=== PATIENT | male | born 1950 ===

== ENCOUNTER 2024-08-18 13:08 | Emergency (ER) | payer OTHER ==
[~2024-08-18] VITALS: Ht 167.6 cm; Wt 74.8 kg
[2024-08-18 13:32] VITALS: BP 119/75; O2SAT 96
[2024-08-18] MEDS ORDERED: PANTOPRAZOLE SO40 MG PO (13:38)
[2024-08-18] MEDS ORDERED: PREDNISOLONE ACE5 ML (13:38)
[2024-08-18] MEDS ORDERED: ATORVASTATIN CA40 MG PO (13:38)
[2024-08-18] MEDS ORDERED: JANUVIA100 MG PO (13:38)
[2024-08-18] MEDS ORDERED: LOSARTAN POTASS25 MG PO (13:38)
[2024-08-18] MEDS ORDERED: XARELTO20 MG (13:39)
[2024-08-18] MEDS ORDERED: TRELEGY ELLIPT1 EAC1 IH (13:39)
[2024-08-18 14:37] LABS: HEMOGLOBIN 9.9 g/dL (13-16.00); MEAN CELL VOLUME 87.3 fL (80.0-100.00); MEAN CORPUSCULAR HGB CONC 33.2 g/dl (32.0-36.0); PLATELET COUNT 248 K/uL (150-450); RED BLOOD COUNT 3.43 M/uL (4.00-6.00); RED CELL DISTRIBUTION WIDTH 16.2 % (11.5-14.5)
[2024-08-18 15:01] LABS: INR 2.16; PARTIAL THROMBOPLASTIN TIME 37.9 SECONDS (22.0-34.0)
[2024-08-18 15:06] LABS: ALBUMIN 3.8 gm/dL (3.4-5.0); BILIRUBIN TOTAL 1.69 mg/dL (0.3-1.2); CALCIUM 8.8 mg/dL (8.5-10.1); CREATININE SERUM 1.91 mg/dL (0.70-1.30); GFR 34.52; GLOBULINA 3.8 G/DL (2.4-3.5); POTASSIUM 4.22 mEq/L (3.5-5.1); TOTAL PROTEIN 7.6 gm/dL (6.4-8.2)
[2024-08-18 15:09] LABS: PROTHROMBIN TIME 22.2 SECONDS (9.0-11.5)
== END 2024-08-18 15:53 | disposition home or self-care (01) ==
LOC: ER 13:30
DX: S42.292A Other displaced fracture of upper end of left humerus, initial encounter for closed fracture (principal); W18.39XA Other fall on same level, initial encounter; Y93.89 Activity, other specified; Y92.59 Other trade areas as the place of occurrence of the external cause; Y99.9 Unspecified external cause status; I10 Essential (primary) hypertension